=== PATIENT | male | born 1945 | race Caucasian/White ===

== ENCOUNTER 2016-12-15 11:41 | Observation (INO) | payer MEDICARE, BC ==
[2016-12-15] VITALS (7 sets, daily range): BP systolic 120–134; BP diastolic 66–78; PULSE 57–80; RESP 16–18; TEMP 95.5–98.6; O2SAT 96–99
[~2016-12-15] VITALS: Ht 172.7 cm; Wt 80.7 kg
[2016-12-15] MEDS ORDERED: FISHCAP4 PO (12:17)
[2016-12-15] MEDS ORDERED: ONCETAB7 (12:17)
[2016-12-15] MEDS ORDERED: KETO2AER TOPICAL (12:17)
[2016-12-15] MEDS ORDERED: ALLO100T PO (12:17)
[2016-12-15] MEDS ORDERED: ASPI81TA81 (12:17)
[2016-12-15] MEDS ORDERED: LEVO88TA2 PO (12:17)
[2016-12-15] MEDS ORDERED: RAMI10CA PO (12:17)
[2016-12-15] MEDS ORDERED: FOLI400T PO (12:17)
[2016-12-15] MEDS ORDERED: METO25TA6 PO (12:17)
[2016-12-15] MEDS ORDERED: FLUO0.013 TOPICAL (12:17)
[2016-12-15] MEDS ORDERED: SIMV40TA PO (12:17)
--- NOTE | 2016-12-15 12:24 | PD ---
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 Also feels a little dizzy with the unsteady gait. He was brushing his teeth and notice that the right side of his mouth feels different. Right eye is more teary. Denies any fever, chest pain, sob, n/v, abdominal pain, weakness or numbness in arms or legs. PFSH Past Medical History Cancer: Yes (brain) High Cholesterol: Yes Chemotherapy: Yes (last dose 09/19) Gout: Yes Hypertension: Yes Past Surgical History Abdominal Surgery: Yes (poly removed from colon, hernia repair as a child) Coronary Stent: Yes (x1) Genitourinary Surgery: Yes (vasectomy) Neurologic Surgery: Yes (brain tumor removed, gamma therapy and chemo) Thoracic Surgery: Yes (right lobectomy) Tonsillectomy: Yes Social History Alcohol Use: Yes (4-5 daily) Tobacco Use: No Substance Use: No Allergies-Medications (Allergen,Severity, Reaction): Coded Allergies: Penicillin (Verified Allergy, Unknown, 12/15/16) Reported Meds & Prescriptions Reported Meds & Active Scripts Active Reported Ketoconazole Topical 2% Cream 1 Applic TOPICAL BID Aspir-81 (Aspirin) 81 Mg Tabdr Once Daily (Multivitamin) 1 Each Tablet Fish Oil + D3 (Fish Oil-Cholecalciferol) 1,200-1,000 Mg-Unit Cap 1 Cap PO DAILY Ketoconazole Topical 2% Foam 1 Applic TOPICAL 2XWEEK Fluocinolone Topical (Fluocinolone Acetonide) 0.01% Cream 1 Applic TOPICAL DAILY Folic Acid 400 Mcg Tab 400 Mcg PO DAILY Metoprolol Succinate ER 24 HR (Metoprolol Succinate) 25 Mg Tab 25 Mg PO DAILY Simvastatin 40 Mg Tab 40 Mg PO HS Allopurinol 100 Mg Tab 100 Mg PO DAILY Ramipril 10 Mg Cap 10 Mg PO DAILY Levothyroxine (Levothyroxine Sodium) 88 Mcg Tab 88 Mcg PO DAILY Review of Systems Except as stated in HPI: all other systems reviewed are Neg Physical Exam Narrative GENERAL: 71yo M not in distress. SKIN: Focused skin assessment warm/dry. HEAD: Atraumatic. Normocephalic. EYES: Pupils equal and round. No scleral icterus. No injection or drainage. ENT: No nasal bleeding or discharge. Mucous membranes pink and moist. NECK: Trachea midline. No JVD. CARDIOVASCULAR: Regular rate and rhythm. No murmur appreciated. RESPIRATORY: No accessory muscle use. Clear to auscultation. Breath sounds equal bilaterally. GASTROINTESTINAL: Abdomen soft, non-tender, nondistended. MUSCULOSKELETAL: No obvious deformities. No clubbing. No cyanosis. No edema. NEUROLOGICAL: Awake and alert. Cranial nerve 7 palsy right. Pt is unable to elevate right eyebrow as much as left and there is a tiny facial droop on right. Pt's gait is wide based. PSYCHIATRIC: Appropriate mood and affect; insight and judgment normal. Data Data Last Documented VS Vital Signs Date Time Temp Pulse Resp B/P Pulse Ox O2 Delivery O2 Flow Rate FiO2 12/15/16 13:19 57 16 123/73 98 Room Air 12/15/16 11:[address] Brain W/O Iv Contrast(Rout) (12/15/16 ) Complete Blood Count With Diff (12/15/16 12:02) Basic Metabolic Panel (Bmp) (12/15/16 12:02) Prothrombin Time / Inr (Pt) (12/15/16 12:02) Act Partial Throm Time (Ptt) (12/15/16 12:02) Type And Screen (12/15/16 12:02) Acyclovir (Zovirax) (12/15/16 14:00) Prednisone (Deltasone) (12/15/16 14:00) Artificial Tears Opth Soln (Tears Natura (12/15/16 14:00) Aspirin (Aspirin) (12/15/16 14:00) Admit Order (Ed Use Only) (12/15/16 14:12) Labs Laboratory Tests Test 12/15/16 12/15/16 12:20 12:34 White Blood Count 8.0 TH/MM3 Red Blood Count 4.34 MIL/MM3 Hemoglobin 15.4 GM/DL Hematocrit 44.7 % Mean Corpuscular Volume 103.1 FL Mean Corpuscular Hemoglobin 35.4 PG Mean Corpuscular Hemoglobin 34.4 % Concent Red Cell Distribution Width 12.2 % Platelet Count 132 TH/MM3 Mean Platelet Volume 9.0 FL Neutrophils (%) (Auto) 62.5 % Lymphocytes (%) (Auto) 25.9 % Monocytes (%) (Auto) 10.5 % Eosinophils (%) (Auto) 0.8 % Basophils (%) (Auto) 0.3 % Neutrophils # (Auto) 5.0 TH/MM3 Lymphocytes # (Auto) 2.1 TH/MM3 Monocytes # (Auto) 0.8 TH/MM3 Eosinophils # (Auto) 0.1 TH/MM3 Basophils # (Auto) 0.0 TH/MM3 CBC Comment DIFF FINAL Differential Comment Prothrombin Time 10.7 SEC Prothromb Time International 1.0 RATIO Ratio Activated Partial 25.2 SEC Thromboplast Time Sodium Level 140 MEQ/L Potassium Level 4.2 MEQ/L Chloride Level 101 MEQ/L Carbon Dioxide Level 31.2 MEQ/L Anion Gap 8 MEQ/L Blood Urea Nitrogen 20 MG/DL Creatinine 1.10 MG/DL Estimat Glomerular Filtration 66 ML/MIN Rate Random Glucose 93 MG/DL Calcium Level 8.8 MG/DL Blood Type O NEGATIVE Antibody Screen NEGATIVE Blood Bank Comment [facility] Medical Decision Making Medical Screen Exam Complete: Yes Emergency Medical Condition: Yes Interpretation(s) EKG: Sinus bradycardia at 57bpm. LAD. No ST segment elevation or depression. Differential Diagnosis CVA vs. whitten's palsy vs. brain tumor Narrative Course 71yo M with PMH of metastatic lung CA to brain s/p resection here with new onset staggering gait yesterday. States that is new. Pt also with other neuro complaints on right face that is consistent with whitten's palsy. Pt was given acyclovir 400mg, prednisone 60mg and artificial tear for right eye. CT brain showed suboccipital craniotomy. Old post surgical changes in left cerebellar hemisphere. No acute abnormality. Labs reviewed, no leukocytosis. BMP unremarkable. I feel that since the unsteady gait is new, should admit for further work up of possible posterior stroke. Discussed with Dr. Cervantes and accepted to her service. Diagnosis Primary Impression: Ataxia Additional Impression: Whitten's palsy Admitting Information Admitting Physician Requests: Observation Scripts Prednisone 20 Mg Tab60 Mg PO DAILY #7 TAB Prov:Hanna Cervantes MD 12/16/16 Mague Perez DO Dec 15, 2016 12:23
[2016-12-15 12:50] LABS: BASOPHIL % 0.3 % (0.0-2.0); EOSINOPHIL # 0.1 TH/MM3 (0-0.4); EOSINOPHIL % 0.8 % (0.0-4.0); HEMATOCRIT 44.7 % (39.0-51.0); HEMO FLAGS DIFF FINAL; LYMPH % 25.9 % (9.0-44.0); LYMPHOCYTE # 2.1 TH/MM3 (1.0-4.8); MEAN CELL VOLUME 103.1 FL (80.0-100.0); MEAN CORPUSCULAR HEMOGLOBIN 35.4 PG (27.0-34.0); MEAN CORPUSCULAR HGB CONC 34.4 % (32.0-36.0); MONO % 10.5 % (0.0-8.0); NEUT % 62.5 % (16.0-70.0); PLATELET COUNT 132 TH/MM3 (150-450); RED BLOOD COUNT 4.34 MIL/MM3 (4.50-5.90); RED CELL DISTRIBUTION WIDTH 12.2 % (11.6-17.2)
[2016-12-15 12:51] LABS: POTASSIUM 4.2 MEQ/L (3.5-5.1)
[2016-12-15 12:52] LABS: APTT (PATIENT) 25.2 SEC (24.3-30.1); PROTHROMBIN TIME - PATIENT 10.7 SEC (9.8-11.6)
[2016-12-15 12:54] LABS: BICARBONATE 31.2 MEQ/L (21.0-32.0)
--- NOTE | 2016-12-15 13:05 | RADRPT ---
EXAM DATE/TIME: 12/15/2016 12:41 [facility] COMPARISON: No previous studies available for comparison. INDICATIONS : Unsteady gait, dizziness. RADIATION DOSE: 63.35 CTDIvol (mGy) MEDICAL HISTORY : Carcinoma, lung. Hypertension. Cardiovascular diseaseMetastatic tumor to brain. SURGICAL HISTORY : Tonsillectomy. Brain tumor resction. ENCOUNTER: Initial ACUITY: 1 day PAIN SCALE: 0/10 LOCATION: cranial TECHNIQUE: Multiple contiguous axial images were obtained of the head. Using automated exposure control and adj ustment of the mA and/or kV according to patient size, radiation dose was kept as low as reasonably a chievable to obtain optimal diagnostic quality images. DICOM format image data is available electro nically for review and comparison. FINDINGS: CEREBRUM: The ventricles are normal for age. No evidence of midline shift, mass lesion, hemorrhage or acute in farction. No extra-axial fluid collections are seen. POSTERIOR FOSSA: The examination demonstrates changes consistent with a suboccipital craniotomy. There is a smaller en cephalomalacia in the left cerebellar hemisphere. There is no acute hemorrhage seen. EXTRACRANIAL: The visualized portion of the orbits is intact. SKULL: There are changes in the a simple bone on the left. The skull is otherwise intact. The sinuses are cl ear. CONCLUSION: 1. Old postsurgical changes in the left cerebellar hemisphere. 2. No acute abnormality identified. Chaka Patterson MD on December 15, 2016 at 13:02 Board Certified Radiologist. This report was verified electronically.
[2016-12-15] MEDS ORDERED: ASPIRIN 325 MG TAB PO ONE (14:00)
[2016-12-15] MEDS ORDERED: predniSONE 20 MG TAB PO ONE (14:00)
[2016-12-15] MEDS ORDERED: ARTIFICIAL TEARS OPTH SOLN 15 ML BTL RIGHT EYE ONE (14:00)
[2016-12-15] MEDS ORDERED: ACYCLOVIR 200 MG CAP PO SCH ×2 (14:00→22:00)
[2016-12-15] MEDS ORDERED: SODIUM CHLOR 0.9% 1000 ML INJ 1,000 ML IV SCH (14:26)
[2016-12-15] MEDS ORDERED: TEMAZEPAM 15 MG CAP PO PRN (14:30)
[2016-12-15] MEDS ORDERED: SODIUM CHLORIDE 0.9% FLUSH 10 ML FLUSH IV FLUSH PRN (14:30)
[2016-12-15] MEDS ORDERED: SENNOSIDES 8.6 MG TAB PO PRN (14:30)
[2016-12-15] MEDS ORDERED: BISACODYL 10 MG SUPP RECTAL PRN (14:30)
[2016-12-15] MEDS ORDERED: ACETAMINOPHEN 325 MG TAB PO PRN (14:30)
[2016-12-15] MEDS ORDERED: MAGNESIUM HYDROXIDE SUSP 30 ML CUP PO PRN (14:30)
[2016-12-15] MEDS ORDERED: ONDANSETRON HCL 4 MG/2 ML VIAL IVP PRN (14:30)
[2016-12-15] MEDS ORDERED: LACTULOSE SYRUP 20 GM/30 ML CUP PO PRN (14:30)
[2016-12-15] MEDS ORDERED: GADODIAMIDE PF 287 MG/ML 5 ML VIAL (for RAD MRI) IV ONE (16:48)
[2016-12-15] MEDS ORDERED: KETO2CRE TOPICAL (17:01)
--- NOTE | 2016-12-15 17:17 | RADRPT ---
EXAM DATE/TIME: 12/15/2016 16:49 [facility] COMPARISON: No previous studies available for comparison. INDICATIONS : CVA. Metastatic lung cancer. Dizziness and blurry eyes with left sided facial droop. CONTRAST: 15 cc Omniscan (gadodiamide) IV MEDICAL HISTORY : Hypertension. Carcinoma, lung. Carcinoma brain. SURGICAL HISTORY : Coronary artery stent. Tonsillectomy. Vasectomy, brain mass removed, hernia, cataracts and lobectom y. ENCOUNTER: Initial ACUITY: 2 day PAIN SCORE: 0/10 LOCATION: Head. TECHNIQUE: Multiplanar, multisequence MRI of the brain was performed both prior to and following the administrat ion of paramagnetic contrast. FINDINGS: CEREBRUM: A 5 mm circumscribed lesion is seen within the subcortical white matter of the left parietal lobe. Th is has a hemosiderin ring. Limited artifact noted on the gradient echo sequence. The ventricles are n ormal for age. No evidence of midline shift, mass lesion, hemorrhage or acute infarction. No extraa xial fluid collections are seen. The pituitary gland and suprasellar cistern are normal in configura tion. WHITE MATTER: Scattered foci of high flair signal involving the periventricular white matter of both cerebral hemis pheres. POSTERIOR FOSSA: There is an area of encephalomalacia involving the inferior left cerebellar hemisphere. The cerebellu m and brainstem are intact. The 4th ventricle is midline. The cerebellopontine angle is unremarkable . The cerebellar tonsils are normal in position. DIFFUSION IMAGING: No focal areas of restricted diffusion are seen. No evidence of acute infarction. EXTRACRANIAL: The visualized portions of the orbits and paranasal sinuses are unremarkable. A small mucus retention cyst seen within the left maxillary sinus. POST-CONTRAST: No abnormal areas of parenchymal or dural enhancement. No evidence of blood-brain barrier breakdown. CONCLUSION: 1. No acute intracranial abnormality. 2. 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 3. Chronic small vessel ischemic change. 4. Encephalomalacia within the left cerebellar hemisphere. Michael Barba Jr., MD on December 15, 2016 at 17:11 Board Certified Radiologist. This report was verified electronically.
--- NOTE | 2016-12-15 18:07 | HHI.HP ---
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 Also feels a little dizzy with the unsteady gait. He was brushing his teeth and notice that the right side of his mouth feels different. Right eye is more teary. Denies any fever, chest pain, sob, n/v, abdominal pain, weakness or numbness in arms or legs. He denies any recent infection, no fever or chills. No cough. No rash . No chest pain or sob. No urinary complaints. Review of Systems Except as stated in HPI: all other systems reviewed are Neg Past Family Social History Past Medical History Metastatic lung CA to the brain s/p brain tumor resection in 2015, s/p chemo 2016, HTN, HLD, gout Past Surgical History Polyp removed from colon, hernia repair as a child) Cardiac cath with stent placed Vasectomy Brain tumor removed, gamma therapy and chemo Right lobectomy Tonsillectomy Reported Medications Reported Meds & Active Scripts Active Reported Ketoconazole Topical 2% Cream 1 Applic TOPICAL BID Aspir-81 (Aspirin) 81 Mg Tabdr Once Daily (Multivitamin) 1 Each Tablet Fish Oil + D3 (Fish Oil-Cholecalciferol) 1,200-1,000 Mg-Unit Cap 1 Cap PO DAILY Ketoconazole Topical 2% Foam 1 Applic TOPICAL 2XWEEK Fluocinolone Topical (Fluocinolone Acetonide) 0.01% Cream 1 Applic TOPICAL DAILY Folic Acid 400 Mcg Tab 400 Mcg PO DAILY Metoprolol Succinate ER 24 HR (Metoprolol Succinate) 25 Mg Tab 25 Mg PO DAILY Simvastatin 40 Mg Tab 40 Mg PO HS Allopurinol 100 Mg Tab 100 Mg PO DAILY Ramipril 10 Mg Cap 10 Mg PO DAILY Levothyroxine (Levothyroxine Sodium) 88 Mcg Tab 88 Mcg PO DAILY Allergies: Coded Allergies: Penicillin (Verified Allergy, Unknown, 12/15/16) Family History Father has DM and heart problems, committed suicide at the age of 79 Mother with CHF, emphysema was a smoker Social History EtOH use 4-5 beers daily. Denies tobacco use or illicit drug use. Physical Exam Vital Signs Vital Signs Date Time Temp Pulse Resp B/P Pulse Ox O2 Delivery O2 Flow Rate FiO2 12/15/16 16:00 97.7 79 18 120/78 96 12/15/16 13:19 57 16 123/73 98 Room Air 12/15/16 11:54 98.6 65 16 128/75 99 Physical Exam GENERAL: This is a well-nourished, well-developed patient, in no apparent distress. SKIN: No rashes, ecchymoses or lesions. Cool and dry. HEAD: Atraumatic. Normocephalic. No temporal or scalp tenderness. EYES: Pupils equal round and reactive. Extraocular motions intact. No scleral icterus. No injection or drainage. ENT: Nose without bleeding, purulent drainage or septal hematoma. Throat without erythema, tonsillar hypertrophy or exudate. Uvula midline. Airway patent. NECK: Trachea midline. No JVD or lymphadenopathy. Supple, nontender, no meningeal signs. CARDIOVASCULAR: Regular rate and rhythm without murmurs, gallops, or rubs. RESPIRATORY: Clear to auscultation. Breath sounds equal bilaterally. No wheezes , rales, or rhonchi. GASTROINTESTINAL: Abdomen soft, non-tender, nondistended. No hepato-splenomegaly , or palpable masses. No guarding. MUSCULOSKELETAL: Extremities without clubbing, cyanosis, or edema. No joint tenderness, effusion, or edema noted. No calf tenderness. Negative Homans sign bilaterally. NEUROLOGICAL: Awake and alert. Cranial nerve 7 palsy right. Pt is unable to elevate right eyebrow as much as left and there is a tiny facial droop on right. Unsteady gait. Normal speech. Laboratory Laboratory Tests Test 12/15/16 12/15/16 12:20 12:34 White Blood Count 8.0 Red Blood Count 4.34 Hemoglobin 15.4 Hematocrit 44.7 Mean Corpuscular Volume 103.1 Mean Corpuscular Hemoglobin 35.4 Mean Corpuscular Hemoglobin 34.4 Concent Red Cell Distribution Width 12.2 Platelet Count 132 Mean Platelet Volume 9.0 Neutrophils (%) (Auto) 62.5 Lymphocytes (%) (Auto) 25.9 Monocytes (%) (Auto) 10.5 Eosinophils (%) (Auto) 0.8 Basophils (%) (Auto) 0.3 Neutrophils # (Auto) 5.0 Lymphocytes # (Auto) 2.1 Monocytes # (Auto) 0.8 Eosinophils # (Auto) 0.1 Basophils # (Auto) 0.0 CBC Comment DIFF FINAL Differential Comment Prothrombin Time 10.7 Prothromb Time International 1.0 Ratio Activated Partial 25.2 Thromboplast Time Sodium Level 140 Potassium Level 4.2 Chloride Level 101 Carbon Dioxide Level 31.2 Anion Gap 8 Blood Urea Nitrogen 20 Creatinine 1.10 Estimat Glomerular Filtration 66 Rate Random Glucose 93 Calcium Level 8.8 Blood Type O NEGATIVE Antibody Screen NEGATIVE Blood Bank Comment Result Diagram: 12/15/16 1220 12/15/16 1220 Imaging Last Impressions Head CT 12/15/16 0000 Signed Impressions: Service Date/Time: December 12:41 - CONCLUSION: 1. Old postsurgical changes in the left cerebellar hemisphere. 2. No acute abnormality identified. Chaka Patterson MD Brain MRI 12/15/16 0000 Signed Impressions: Service Date/Time: December 16:49 - CONCLUSION: 1. No acute intracranial abnormality. 2. 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 3. Chronic small vessel ischemic change. 4. Encephalomalacia within the left cerebellar hemisphere. Michael Barba Jr., MD Assessment and Plan Assessment and Plan 71yo M with PMH of metastatic lung CA to brain s/p resection here with new onset staggering gait yesterday. States that is new. Pt also with other neuro complaints on right face that is consistent with rodriguez's palsy. Patient admits drinking more last night. He is here in vacation. Ataxia Poss [place] Palsy CT head reviewed and findings discussed with ED physician. CT brain showed suboccipital craniotomy. Old post surgical changes in left cerebellar hemisphere. MRI brain reviewed and findings discussed with Dr Schulte neurology Received acyclovir and prednisone. Start IVF Allow permissive HTN, hold BP meds. Consult neurology appreciate recommendations EKG: Sinus bradycardia at 57bpm. LAD. No ST segment elevation or depression. Monitor on telemetry PT/OT/ST consult Passed swallow evaluation Chronic medical problems appear stable at this time. Restart home meds. Hold BP meds. allow permissive HTN. Metastatic lung CA to the brain s/p brain tumor resection in 2015, s/p chemo 09/2016, HTN, HLD, gout DVT ppx SCD/TEDS Discussed Condition With patient. nurse, ED physician , Dr Schulte neurology Hanna Cervantes MD Dec 15, 2016 18:07
[2016-12-15] MEDS ORDERED: KETOCONAZOLE 2% CREAM 15 GM TOPICAL SCH (21:00)
[2016-12-15] MEDS ORDERED: PRAVASTATIN SOD 80 MG TAB PO SCH (21:00)
[2016-12-15] MEDS ORDERED: DOCUSATE SODIUM 50 MG/SENNA 8.6 MG TAB PO SCH (21:00)
[2016-12-15] MEDS ORDERED: SODIUM CHLORIDE 0.9% FLUSH 10 ML FLUSH IV FLUSH SCH (21:00)
[2016-12-15] MEDS ORDERED: ACETAMINOPHEN/HYDROcodone 325 MG/5 MG TAB PO ONE (21:30)
--- NOTE | 2016-12-15 23:40 | MB ---
cc: OSCAR GARBER MD DATE OF CONSULTATION 12/15/16 REASON FOR CONSULTATION Facial weakness. The patient with history of brain mats and resection. HISTORY OF PRESENT ILLNESS Mr. Mortensen is a 71-year-old male with past medical history of metastatic lung cancer to the brain status post brain tumor resection in 2015, status post chemotherapy in September 2016, hypertension, hyperlipidemia, and gout who presented to the [facility] emergency room with complaint of three-day duration, unsteady gait and right facial numbness and tingling. The patient states that he felt that his right eye does not close properly and there was drooling of the right angle of the mouth with tingling sensation. He started feeling wobbly and started to stagger when he walks. When he was brushing his teeth, he notes that the right side of the mouth feels different. The patient denies headache, double vision, blurred vision, speech difficulty, weakness of an extremity. REVIEW OF SYSTEMS Next a 12-point review of systems negative except for what is stated in the HPI. PAST MEDICAL HISTORY 1. Metastatic lung cancer status post brain tumor resection, status post chemotherapy 2. Hypertension, 3. Hyperlipidemia, PAST SURGICAL HISTORY 1. Polyp removed from colon 2. Hernia repair 3. Cardiac cath with stent placement 4. Vasectomy 5. Brain tumor removed MEDICATIONS 1. Ketoconazole 2. Aspirin 3. Fish oil. 4. Folic acid. 5. Metoprolol 6. Allopurinol 7. Ramipril 8. Levothyroxine ALLERGIES FAMILY HISTORY Father diabetes mellitus, heart problems committed suicide at the age if 79. Mother congestive heart failure disease and was a smoker. SOCIAL HISTORY Ethyl alcohol - 4-5 beers daily. Denies tobacco or illicit drug abuse. Lives with . PHYSICAL EXAMINATION GENERAL: Awake, alert, good historian, pleasant not in acute distress but anxious. HEENT: Atraumatic, normocephalic. Right-sided facial palsy. Intact hearing. Intact vision. NECK: Trachea in the midline. No carotid bruit. CARDIOVASCULAR: Regular rate and rhythm. RESPIRATORY: Clear to auscultation. No wheezes. GASTROINTESTINAL: Soft abdomen. No distension. MUSCULOSKELETAL: No clubbing or cyanosis. Moves all extremities. NEUROLOGIC: Awake, alert, oriented to time, person, place. No dysarthria. No dysphagia. Right facial weakness of lower motor neuron region with inability to close the right eye, Whitten's phenomenon, unable to keep the right cheek flat, unable to close the right angle of the mouth tightly and decreased blinking rate on the right side. Other cranial nerves are grossly intact. Motor system examination 5/5 bilateral symmetrical. Normal tone. No abnormal movements. Sensation is intact bilateral symmetrical to light touch and temperature. Reflexes 2+ bilateral and symmetrical. Plantars are bilaterally downgoing. [id number], [id number] is normal. Gait is normal. Romberg sign is positive. Normal tandem gait. PSYCHIATRIC: Normal mood and behavior. No hallucination. LABORATORY DATA White blood cells 8, hemoglobin 15.4, platelet 132, sodium 140, potassium 4.2. IMAGING STUDIES - Head CT scan revealed old postsurgical changes in the left cerebellar hemisphere with no acute abnormality identified. - Brain MRI with and without contrast revealed no acute intracranial abnormality. Five mm cavernous hemangioma involving the left parietal lobe neck. Chronic small vessel ischemic changes. Encephalomalacia within the left cerebellar hemisphere. DIAGNOSTIC IMPRESSION 1. Right Whitten's palsy. 2. Brain mets status post lung cancer status post resection and chemotherapy 3. Questionable CP angle lesion which was no evident on the MRI of the brain given the association of Whitten's palsy and ataxia, however, the patient denies hearing difficulty. PLAN 1. Prednisone 60 mg daily for 1 week. 2. GI prophylaxis/Protonix. 3. Eye patch particularly at night. 4. Sunglasses during the daytime 5. The [place] I recommend he follow up with his neurologist/neurosurgeon for reevaluation and follow-up of the sequelae of right lower facial motor neuron palsy and perhaps repeat the brain imaging. The patient understands the plan of care. 6. Fall precautions. Thank you for the opportunity to participate in the care of your patient. MD CHANTAL Walton/ /11:02 PM /11:24 PM LI[facility]ET[facility]
[2016-12-16] VITALS: BP 142/76; PULSE 62; RESP 18; TEMP 96.3; O2SAT 96
[2016-12-16 04:00] VITALS: BP 157/94; PULSE 73; RESP 18; TEMP 97; O2SAT 98
[2016-12-16] MEDS ORDERED: LEVOTHYROXINE SODIUM 88 MCG TAB PO SCH (06:00)
[2016-12-16 06:41] LABS: AUTOMATED NEUTROPHIL # 9.2 TH/MM3 (1.8-7.7); BASOPHIL % 0.4 % (0.0-2.0); HEMATOCRIT 42.8 % (39.0-51.0); HEMO FLAGS DIFF FINAL; LYMPH % 11.6 % (9.0-44.0); LYMPHOCYTE # 1.3 TH/MM3 (1.0-4.8); MEAN CELL VOLUME 102.6 FL (80.0-100.0); MEAN CORPUSCULAR HEMOGLOBIN 35.1 PG (27.0-34.0); MEAN CORPUSCULAR HGB CONC 34.2 % (32.0-36.0); MONO % 4.5 % (0.0-8.0); NEUT % 83.5 % (16.0-70.0); PLATELET COUNT 133 TH/MM3 (150-450); RED BLOOD COUNT 4.17 MIL/MM3 (4.50-5.90); RED CELL DISTRIBUTION WIDTH 12.1 % (11.6-17.2)
[2016-12-16 06:44] LABS: CHLORIDE 102 MEQ/L (98-107); POTASSIUM 4.2 MEQ/L (3.5-5.1); SODIUM (NA) 138 MEQ/L (136-145)
[2016-12-16 06:48] LABS: ANION GAP 11 MEQ/L (5-15); BICARBONATE 25.4 MEQ/L (21.0-32.0); BLOOD UREA NITROGEN 21 MG/DL (7-18)
[2016-12-16 06:51] LABS: ALT (GPT) 80 U/L (12-78); AST (GOT) 37 U/L (15-37); GLOMERULAR FILTRATION RATE 66 ML/MIN (>89)
[2016-12-16 06:53] LABS: TOTAL BILIRUBIN ADULT 1.2 MG/DL (0.2-1.0)
[2016-12-16 06:54] LABS: ALKALINE PHOSPHATASE 70 U/L (45-117)
[2016-12-16] MEDS ORDERED: PRED20 PO (08:18)
--- NOTE | 2016-12-16 08:18 | HHI.DCPOC ---
Discharge Care Plan Goals to Promote Your Health * To prevent worsening of your condition and complications * To maintain your health at the optimal level Directions to Meet Your Goals Take your medications as prescribed Follow your dietary instruction Follow activity as directed Keep your appointments as scheduled Take your immunizations and boosters as scheduled If your symptoms worsen call your PCP, if no PCP go to Urgent Care Center or Emergency Room Smoking is Dangerous to Your Health. Avoid second hand smoke Call the 24-hour hour crisis hotline for domestic abuse at Hanna Cervantes MD Dec 16, 2016 08:18
[2016-12-16 08:37] VITALS: BP 145/87; PULSE 67; RESP 19; TEMP 96.9; O2SAT 96
[2016-12-16] MEDS ORDERED: METOPROLOL SUCCINATE 25 MG EXTENDED RELEASE TAB PO SCH (09:00)
[2016-12-16] MEDS ORDERED: ALLOPURINOL 100 MG TAB PO SCH (09:00)
[2016-12-16] MEDS ORDERED: RAMIPRIL 5 MG CAP PO SCH (09:00)
[2016-12-16] MEDS ORDERED: FLUOCINOLONE ACETONIDE 0.01% CR 15 GM TUBE TOPICAL SCH (09:00)
[2016-12-16] MEDS ORDERED: predniSONE 20 MG TAB PO SCH (09:00)
[2016-12-16] MEDS ORDERED: FOLIC ACID 1 MG TAB PO SCH (09:00)
[2016-12-16] MEDS ORDERED: ASPIRIN EC 81 MG TABEC PO SCH (09:00)
[2016-12-16 09:19] LABS: HDL CHOLESTEROL 82.7 MG/DL (40.0-60.0); LDL CHOLESTEROL 87 MG/DL (0-99)
--- NOTE | 2016-12-16 11:10 | HHI.PR ---
Subjective Remarks The patient is ambulating in the room without any problems. Feels he is improving. No more ataxia. Numbness and weakness on the face is improving as well. He is eating well. No fever or chills overnight. No pain. There is no rash in his face. He feels comfortable to go home. Says he will home and his lightest a total of 12 hours. Says he will follow with his PCP and neurology as outpatient Objective Vitals Vital Signs Date Time Temp Pulse Resp B/P Pulse Ox O2 Delivery O2 Flow Rate FiO2 12/16/16 08:37 96.9 67 19 145/87 96 12/16/16 04:00 97.0 73 18 157/94 98 12/16/16 00:00 96.3 62 18 142/76 96 12/15/16 20:00 95.5 80 18 134/66 96 12/15/16 19:41 96 21 12/15/16 18:20 71 12/15/16 16:00 97.7 79 18 120/78 96 12/15/16 14:30 96 21 12/15/16 13:19 57 16 123/73 98 Room Air 12/15/16 11:54 98.6 65 16 128/75 99 I/O 12/15/16 12/15/16 12/15/16 12/16/16 12/16/16 12/16/16 07:00 15:00 23:00 07:00 15:00 23:00 Intake Total 240 ml 420 ml Balance 240 ml 420 ml Intake Oral 240 ml 420 ml # Voids 1 3 # Bowel Movements 0 0 Result Diagram: 12/16/16 0617 12/16/16 0617 Imaging Last Impressions Head CT 12/15/16 0000 Signed Impressions: Service Date/Time: December 12:41 - CONCLUSION: 1. Old postsurgical changes in the left cerebellar hemisphere. 2. No acute abnormality identified. Chaka Patterson MD Brain MRI 12/15/16 0000 Signed Impressions: Service Date/Time: December 16:49 - CONCLUSION: 1. No acute intracranial abnormality. 2. 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 3. Chronic small vessel ischemic change. 4. Encephalomalacia within the left cerebellar hemisphere. Michael Barba Jr., MD Objective Remarks GENERAL: This is a well-nourished, well-developed patient, in no apparent distress. SKIN: No rashes, ecchymoses or lesions. Cool and dry. HEAD: Atraumatic. Normocephalic. No temporal or scalp tenderness. EYES: Pupils equal round and reactive. Extraocular motions intact. No scleral icterus. No injection or drainage. ENT: Nose without bleeding, purulent drainage or septal hematoma. Throat without erythema, tonsillar hypertrophy or exudate. Uvula midline. Airway patent. NECK: Trachea midline. No JVD or lymphadenopathy. Supple, nontender, no meningeal signs. CARDIOVASCULAR: Regular rate and rhythm without murmurs, gallops, or rubs. RESPIRATORY: Clear to auscultation. Breath sounds equal bilaterally. No wheezes , rales, or rhonchi. GASTROINTESTINAL: Abdomen soft, non-tender, nondistended. No hepato-splenomegaly , or palpable masses. No guarding. MUSCULOSKELETAL: Extremities without clubbing, cyanosis, or edema. No joint tenderness, effusion, or edema noted. No calf tenderness. Negative Homans sign bilaterally. NEUROLOGICAL: Awake and alert. Cranial nerve 7 palsy right. Pt is unable to elevate right eyebrow as much as left and there is a tiny facial droop on right. Unsteady gait. Normal speech. 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 States that is new. Pt also with other neuro complaints on right face that is consistent with rodriguez's palsy. Patient admits drinking more last night. He is here in vacation. Ataxia resolving [place] Palsy CT head reviewed and findings discussed with ED physician. CT brain showed suboccipital craniotomy. Old post surgical changes in left cerebellar hemisphere. MRI brain reviewed and findings discussed with Dr Schulte neurology Received acyclovir and prednisone. Received IVF. Has good PO intake. Consult neurology appreciate recommendations . Seen by Dr Schulte neurology recommends prednisone 60 mg x 1 week. Patient also to follwo up with his neurology doctor as OP EKG: Sinus bradycardia at 57bpm. LAD. No ST segment elevation or depression. Monitor on telemetry PT/OT/ST consult Passed swallow evaluation , advance diet Chronic medical problems appear stable at this time. Restart home meds. 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 nurse Discharge Planning Improved significantly. Patient is discharged home in stable condition. Patient to follow up with his PCP and his neurology Dr. as outpatient Activity ad michael. as tolerated Diet healthy heart diet Medications per medication reconciliation Hanna Cervantes MD Dec 16, 2016 11:10
[2016-12-16 16:45] LABS: HEMOGLOBIN A1a 1.6 %; HEMOGLOBIN A1b 0.9 %; HEMOGLOBIN Ao 83.4 %; HEMOGLOBIN F 3.3 %; HEMOGLOBIN LA1C 2.1 %; HEMOGLOBIN P3 3.4 %
--- NOTE | 2016-12-17 11:16 | EKG ---
Date Performed: 12/15/2016 Time Performed: 11:41:46 PTAGE: 71 years EKG: SINUS BRADYCARDIA MODERATE INTRAVENTRICULAR CONDUCTION DELAY BORDERLINE ECG INTERPRETATION BASED ON A DEFAULT AGE OF 38 YEARS NO PREVIOUS TRACING DOCTOR: Wagner Reyes Interpretating Date/Time 12/17/2016 11:07:49
== END 2016-12-16 11:23 | disposition home or self-care (01) ==
LOC: PHED 11:41 → PHEDA 14:13 → PH3B 16:03
PROVIDERS: ADMIT Hospitalist; ATTEND Hospitalist
DX: R26.0 Ataxic gait (principal); R00.1 Bradycardia, unspecified; E78.5 Hyperlipidemia, unspecified; R42 Dizziness and giddiness; R20.0 Anesthesia of skin; D18.02 Hemangioma of intracranial structures; G93.89 Other specified disorders of brain; H53.8 Other visual disturbances; R29.810 Facial weakness; J34.1 Cyst and mucocele of nose and nasal sinus; I10 Essential (primary) hypertension; E78.00 Pure hypercholesterolemia, unspecified; Z79.899 Other long term (current) drug therapy; Z79.82 Long term (current) use of aspirin; Z95.5 Presence of coronary angioplasty implant and graft; Z85.118 Personal history of other malignant neoplasm of bronchus and lung; Z85.841 Personal history of malignant neoplasm of brain; Z92.21 Personal history of antineoplastic chemotherapy
CPT/HCPCS: 70450; 70553; 80048; 80053; 80061; 83036; 85025; 85610; 85730; 86850; 86900; 86901; 93005; 97162; 99285; A9579; G0378; G8987; G8988; J7030; J7512